=== PATIENT | female | born 1965 | race Caucasian/White ===

== ENCOUNTER → 2016-09-09 | Day surgery (SDC) | payer OTHER ==
[~2016-09-09] VITALS: Ht 172.7 cm; Wt 77.1 kg
[~2016-09-09] MED LIST: PERCOCET 7.5-31 EACH PO; RECLIPSEN1 EACH PO; TRAMADOL 50 MG50 MG PO; VALTREX1000 MG PO
--- NOTE | ~2016-09-09 | O ---
[facility] [place] [address] OPERATIVE REPORT Name: CONNIE KHAN Room #: 150-4 [facility] M.R.#: [id number] Admission: 09/09/16 Attend Phys: Jaylan York MD Discharge: Date of : 69 Report #: [id number] THIS REPORT FOR: //name// CC: Moiz York DATE OF SERVICE: 09/09/2016 PREOPERATIVE DIAGNOSIS: Deviated nasal septum with nasal airway obstruction. POSTOPERATIVE DIAGNOSIS: Deviated nasal septum with nasal airway obstruction. OPERATIVE PROCEDURE: Nasal septoplasty. ANESTHESIA: General by laryngeal mask. DESCRIPTION OF PROCEDURE: The patient was taken to the operating room and placed in the supine position. General anesthesia was induced via laryngeal mask. Once adequate general anesthesia was obtained, local nasal anesthesia was induced by submucoperichondrial injection of 1% lidocaine with 1:100,000 epinephrine and topical application of cocaine solution. The patient was then draped in a sterile manner. The patient had a nasal septal deviation, primarily to the right side anteriorly. A hemitransfixion incision was placed on the right side of the nose, and the mucoperichondrium and mucoperiosteum were elevated off the septum. The cartilage was incised in front of the bony cartilaginous junction. There was a fracture of the bone superiorly with a triangular piece of bone posteriorly. I rongeured some bone superiorly and then removed a large triangular bone posteriorly and the septum sat more in the midline. I did rongeur along the floor on the maxillary crest, and after these maneuvers, the septum sat more in the midline. The hemitransfixion incision was then closed with 4-0 chromic suture and 4-0 plain mattress sutures placed as well. The patient tolerated the procedure well. Blood loss was approximately 50 mL. The patient was then awokened in a recovery room in stable condition for postoperative monitoring. By: [id number] Jaylan York MD /nt
--- NOTE | ~2016-09-09 | H ---
[facility] [address] [place] [address] HISTORY AND PHYSICAL Name: CONNIE KHAN Room #: 150-4 [facility]..#: [id number] Admission: 09/09/16 Attend Phys: Jaylan York MD Discharge: Date of : 69 Report #: [id number] THIS REPORT FOR: //name// CC: Moiz York DATE OF SERVICE: 09/09/2016 HISTORY OF PRESENT ILLNESS: The patient has had problems with her ears and sinuses for a number of years. She had ventilating tube placement in her right ear 11 months ago. The patient has problems on airplanes. She had a CT scan of her sinuses which shows a deviated nasal septum to the right side that is pushing the middle turbinate into the middle meatus. Her sinuses were clear. She has a lot of crusting in her nose in the morning and has difficulty breathing through her nose. PAST MEDICAL HISTORY: Otherwise, not significant. MEDICATIONS: She is on no medications on a regular basis. ALLERGIES: She is allergic to PENICILLIN and SULFA. PHYSICAL EXAMINATION: She has a severely deviated nasal septum to the right side with decreased nasal airway. Her oropharynx and oral cavity were clear. IMPRESSION: Deviated nasal septum. PLAN: Nasal septoplasty. <ELECTRONICALLY SIGNED> By: Jaylan York MD 09/09/16 [id number] [id number] Jaylan York MD /diogo
[2016-09-09 08:11] VITALS: BP 128/78
[2016-09-09 10:03] VITALS: BP 128/78
== END | disposition home or self-care (01) ==
LOC: TBA 05:34 → OR 05:34
DX: J34.2 Deviated nasal septum (principal); J34.89 Other specified disorders of nose and nasal sinuses; Z98.890 Other specified postprocedural states; Z87.891 Personal history of nicotine dependence
CPT/HCPCS: 50101